=== PATIENT | female | born 2000 | race Caucasian/White ===

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

== ENCOUNTER 2018-06-06 19:28 | Inpatient (IN) | payer BC ==
[2018-06-06] MEDS ORDERED: ACETAMINOPHEN TAB 325 MG TAB PO STA (19:40)
[2018-06-06] MEDS ORDERED: DEXAMETHASONE SOD PHOSPHATE 10 MG/ML 1 ML VIAL IV STA (19:50)
[2018-06-06] MEDS ORDERED: RACEPINEPHRINE 2.25% NEB 0.5 ML NEBU INHALATION STA (19:51)
[2018-06-06] MEDS: SODIUM CHLORIDE 0.9% 500 ML 500 ML IV SCH ×2 (20:07→20:14)
[2018-06-06] MEDS ORDERED: KETOROLAC 30 MG/ML 1 ML VIAL IVP STA (20:08)
[2018-06-06 20:13] LABS: Basophils # (A) 0.1 k/uL (0-0.2); Basophils % (A) 0 %; Eosinophils # (A) 0.2 k/uL (0-0.7); Eosinophils % (A) 1 %; HCT 37.2 % (34.0-46.0); HGB 12.7 gm/dL (11.4-16.0); Lymphocytes # (A) 1.8 k/uL (1.0-4.8); Lymphocytes % (A) 9 %; MCH 27.6 pg (25.0-35.0); MCHC 34.1 g/dL (31.0-37.0); MCV 80.9 fL (80.0-100.0); Mean Platelet Volume 7.1; Monocytes % (A) 5 %; Neutrophils # (A) 16.5 k/uL (1.3-7.7); Neutrophils % (A) 83 %; Platelet Count 326 k/uL (150-450); RBC 4.59 m/uL (3.80-5.40); RDW 14.1 % (11.5-15.5); WBC 19.9 k/uL (4.0-11.0)
[2018-06-06 20:17] LABS: Appearance,Urine Cloudy (Clear); Bilirubin,Urine Negative (Negative); Blood,Urine Negative (Negative); Color,Urine Yellow; Glucose,Urine (UA) Negative (Negative); Ketones,Urine Trace (Negative); Leukocyte Esterase,Urine Small (Negative); Mucus,Urine Occasional /hpf; Nitrite,Urine Negative (Negative); PH, Urine 6.5 (5.0-8.0); Protein,Urine 2+ (Negative); RBC,Urine 2 /hpf (0-5); Specific Gravity,Urine 1.027 (1.001-1.035); Squamous Epithelial Cell,Urine 10 /hpf (0-4); WBC,Urine 6 /hpf (0-5)
[2018-06-06] MEDS ORDERED: AMPICILLIN-SULBACTAM 3 GM in SODIUM CHLORIDE 0.9% 100 ML IVPB STA (20:19)
[2018-06-06 20:28] LABS: Albumin 4.7 g/dL (3.5-5.0); Anion Gap 13 mmol/L; Blood Urea Nitrogen 10 mg/dL (7-17); Calcium 9.2 mg/dL (8.4-10.2); Carbon Dioxide 22 mmol/L (22-30); Chloride 101 mmol/L (98-107); Glucose 86 mg/dL (74-99); Sodium 136 mmol/L (137-145); Total Bilirubin 1.1 mg/dL (0.2-1.3); Total Protein 8.4 g/dL (6.3-8.2)
[2018-06-06 20:29] LABS: ALT 19 U/L (9-52); AST 37 U/L (14-36); Alkaline Phosphatase 60 U/L (38-126); Potassium 4.7 mmol/L (3.5-5.1)
--- NOTE | 2018-06-06 21:11 | CT ---
EXAMINATION TYPE: CT soft tissue neck w con DATE OF EXAM: 06/06/2018 HISTORY: throat swelling x2 days COMPARISON: NONE CT DLP: 493.8 mGycm. Automated Exposure Control for Dose Reduction was Utilized. TECHNIQUE: CT scan of the neck is performed with IV Contrast, patient injected with 100 mL of Isovue 300, axial images are obtained, coronal and sagittal reformatted images are reviewed. FINDINGS: Exam noticed suboptimal secondary to patient's large body habitus. Airway: There are some fullness of the heart palate and adenoid tonsils in the posterior nasopharynx. Region of epiglottis and vallecula appears within normal limits. Piriform sinuses are symmetric misael nal image 30. Hypopharyngeal airway is patent. Thyroid gland is within normal limits. Parotid/submandibular glands: No gross abnormality seen. Carotid/Vascular Structures: No significant plaque or stenosis carotid bulb level bilaterally . Domin ant left vertebral artery incidentally noted. Osseous Structures: Reversal of normal cervical curvature. Other: Prominent bilateral neck lymph nodes are seen including some enlarged bilaterally. For referen ce there is right submandibular lymph node measuring 2.2 x 1.7 cm axial image 55. For reference there is enlarged left submandibular lymph node at level of hyoid bone axial image 51 measuring 2.0 x 1.8 cm. IMPRESSION: Suspect adenoid and more prominent palatine tonsillitis. Mass effect on nasopharyngeal an d oropharyngeal airway noted. Remainder of airway patent. Reactive adenopathy is noted. No drainable abscess is seen.
[2018-06-06] MEDS ORDERED: ACETAMINOPHEN ORAL SUSP 160 MG/5 ML CUP PO ONE (21:17)
[2018-06-06] MEDS ORDERED: NALOXONE 0.4 MG/ML 1 ML VIAL IV PRN (22:19)
[2018-06-06] MEDS ORDERED: ONDANSETRON 4 MG/2 ML VIAL IVP PRN (22:19)
[2018-06-06] MEDS ORDERED: KETOROLAC 30 MG/ML 1 ML VIAL IVP PRN (22:19)
[2018-06-06] MEDS ORDERED: ACETAMINOPHEN ORAL SUSP 160 MG/5 ML CUP PO PRN (22:25)
--- NOTE | 2018-06-06 22:26 | ED ---
General Adult HPI - General Chief complaint: ENT Stated complaint: Dx Tonsillitis,Throat swelling shut Time Seen by Provider: 06/06/18 19:40 Source: patient, RN notes reviewed Mode of arrival: ambulatory Limitations: no limitations - History of Present Illness Initial comments: 17-year-old female presents to the emergency department for a chief complaint of sore throat. Patient states she has had a sore throat for about 3 days. Patient states that this morning he started to worsen. She states her tonsils aren't to swell more than they had over the last several days. Patient saw a provider at urgent care and was given an injection of antibiotics and steroids. Patient states she was prescribed antibiotics for home. However throughout the day patient has had increased swelling of her tonsils and states she now feels as though she cannot swallow any pills. Patient feels as if her throat is closing. At this time denies any difficulty breathing.Patient has no other complaints at this time including shortness of breath, chest pain, abdominal pain, nausea or vomiting, headache, or visual changes. - Related Data Home Medications Medication Instructions Recorded Confirmed Norgestimate-Ethinyl Estradiol 1 tab PO DAILY 06/06/18 06/06/18 [Sprintec 28 Day Tablet] Allergies Allergy/AdvReac Type Severity Reaction Status Date / Time No Known Allergies Allergy Verified 06/06/18 22:11 Review of Systems ROS Statement: Those systems with pertinent positive or pertinent negative responses have been documented in the HPI. ROS Other: All systems not noted in ROS Statement are negative. Past Medical History Past Medical History: No Reported History History of Any Multi-Drug Resistant Organisms: None Reported Past Surgical History: Adenoidectomy Past Psychological History: No Psychological Hx Reported Smoking Status: Never smoker Past Alcohol Use History: None Reported Past Drug Use History: None Reported General Exam Limitations: no limitations General appearance: alert, in no apparent distress Head exam: Present: atraumatic, normocephalic, normal inspection Eye exam: Present: normal appearance, PERRL, EOMI. Absent: scleral icterus, conjunctival injection, periorbital swelling ENT exam: Present: mucous membranes moist, TM's normal bilaterally, normal exte rnal ear exam. Absent: normal exam, normal oropharynx (Significant tonsillitis noted, right worse in the left. Uvula somewhat deviated to the left however difficult to see due to tonsillitis. No evidence of [employer] at this time. Patient has some pain opening her mouth but is able to completely open jaw. No sublingual edema.) Neck exam: Present: normal inspection, full ROM, lymphadenopathy (Bilateral submandibular lymphadenopathy noted). Absent: tenderness, meningismus Respiratory exam: Present: normal lung sounds bilaterally. Absent: respiratory distress, wheezes, rales, rhonchi, stridor Cardiovascular Exam: Present: regular rate, normal rhythm, normal heart sounds. Absent: systolic murmur, diastolic murmur, rubs, gallop, clicks Neurological exam: Present: alert, oriented X3, CN II-XII intact Psychiatric exam: Present: normal affect, normal mood Course Vital Signs 06/06/18 06/06/18 06/06/18 19:36 20:10 20:18 Temperature 99.8 F H Pulse Rate 115 H 112 H 120 H Respiratory 16 Rate Blood Pressure 100/76 O2 Sat by Pulse 97 Oximetry 06/06/18 21:06 Temperature 101.7 F H Pulse Rate 112 H Respiratory 20 Rate Blood Pressure 149/79 O2 Sat by Pulse 96 Oximetry Medical Decision Making - Medical Decision Making 17-year-old female presents to the emergency department for a chief complaint of sore throat 3 days. This did worsen today patient unable to swallow antibiotics. Patient is febrile here in the emergency department with mild tachycardia noted likely secondary to fever. On exam patient does not appear to be in any respiratory distress. Patient is lying back comfortably resting. However does have significant tonsillitis noted worse on the right side. No evident peritonsillar abscess at this time. CBC does show a white count of 19.9. CMP unremarkable. Lactic 1.0. Rapid strep and heterophile are negative. Patient was given IV Rocephin and Unasyn, blood cultures pending. She was also given Decadron. CT soft tissue neck that show adenoid and prominent palatine tonsillitis with mass effect on the nasopharyngeal and oropharyngeal airway noted. The remainder of the airway is patent. No drainable abscess seen. Given mass effect and airway Dr. Farley did speak with Dr. Dorsey who re commends IV Unasyn, IV fluids, and 10 mg of IV Decadron every 6 hours. Patient will be admitted for further management and observation. - Lab Data Result diagrams: 06/06/18 19:51 06/06/18 19:51 Lab Results 06/06/18 06/06/18 06/06/18 Range/Units 19:51 19:51 19:51 WBC 19.9 H (4.0-11.0) k/uL RBC 4.59 (3.80-5.40) m/uL Hgb 12.7 (11.4-16.0) gm/dL Hct 37.2 (34.0-46.0) % MCV 80.9 (80.0-100.0) fL MCH 27.6 (25.0-35.0) pg MCHC 34.1 (31.0-37.0) g/dL RDW 14.1 (11.5-15.5) % Plt Count 326 (150-450) k/uL Neutrophils % 83 % Lymphocytes % 9 % Monocytes % 5 % Eosinophils % 1 % Basophils % 0 % Neutrophils # 16.5 H (1.3-7.7) k/uL Lymphocytes # 1.8 (1.0-4.8) k/uL Monocytes # 1.0 (0-1.0) k/uL Eosinophils # 0.2 (0-0.7) k/uL Basophils # 0.1 (0-0.2) k/uL Sodium 136 L (137-145) mmol/L Potassium 4.7 (3.5-5.1) mmol/L Chloride 101 (98-107) mmol/L Carbon Dioxide 22 (22-30) mmol/L Anion Gap 13 mmol/L BUN 10 (7-17) mg/dL Creatinine 0.81 (0.52-1.04) mg/dL Est GFR (CKD-EPI)AfAm >90 (>60 ml/min/1.73 sqM) Est GFR (CKD-EPI)NonAf >90 (>60 ml/min/1.73 sqM) Glucose 86 (74-99) mg/dL Plasma Lactic Acid Ludin 1.0 (0.7-2.0) mmol/L Calcium 9.2 (8.4-10.2) mg/dL Total Bilirubin 1.1 (0.2-1.3) mg/dL AST 37 H (14-36) U/L ALT 19 (9-52) U/L Alkaline Phosphatase 60 (38-126) U/L Total Protein 8.4 H (6.3-8.2) g/dL Albumin 4.7 (3.5-5.0) g/dL Urine Color Urine Appearance (Clear) Urine pH (5.0-8.0) Ur Specific [place] (1.001-1.035) Urine Protein (Negative) Urine Glucose (UA) (Negative) Urine Ketones (Negative) Urine Blood (Negative) Urine Nitrite (Negative) Urine Bilirubin (Negative) Urine Urobilinogen (<2.0) mg/dL Ur Leukocyte Esterase (Negative) Urine RBC (0-5) /hpf Urine WBC (0-5) /hpf Ur Squamous Epith Cells (0-4) /hpf Urine Mucus (None) /hpf Urine HCG, Qual (Not Detectd) Heterophile Antibody (Negative) Group A Strep Rapid (Negative) 06/06/18 06/06/18 06/06/18 Range/Units 19:51 19:51 19:51 WBC (4.0-11.0) k/uL RBC (3.80-5.40) m/uL Hgb (11.4-16.0) gm/dL Hct (34.0-46.0) % MCV (80.0-100.0) fL MCH (25.0-35.0) pg MCHC (31.0-37.0) g/dL RDW (11.5-15.5) % Plt Count (150-450) k/uL Neutrophils % % Lymphocytes % % Monocytes % % Eosinophils % % Basophils % % Neutrophils # (1.3-7.7) k/uL Lymphocytes # (1.0-4.8) k/uL Monocytes # (0-1.0) k/uL Eosinophils # (0-0.7) k/uL Basophils # (0-0.2) k/uL Sodium (137-145) mmol/L Potassium (3.5-5.1) mmol/L Chloride (98-107) mmol/L Carbon Dioxide (22-30) mmol/L Anion Gap mmol/L BUN (7-17) mg/dL Creatinine (0.52-1.04) mg/dL Est GFR (CKD-EPI)AfAm (>60 ml/min/1.73 sqM) Est GFR (CKD-EPI)NonAf (>60 ml/min/1.73 sqM) Glucose (74-99) mg/dL Plasma Lactic Acid Lud[place] (0.7-2.0) mmol/L Calcium (8.4-10.2) mg/dL Total Bilirubin (0.2-1.3) mg/dL AST (14-36) U/L ALT (9-52) U/L Alkaline Phosphatase (38-126) U/L Total Protein (6.3-8.2) g/dL Albumin (3.5-5.0) g/dL Urine Color Yellow Urine Appearance Cloudy H (Clear) Urine pH 6.5 (5.0-8.0) Ur Specific [place] 1.027 (1.001-1.035) Urine Protein 2+ H (Negative) Urine Glucose (UA) Negative (Negative) Urine Ketones Trace H (Negative) Urine Blood Negative (Negative) Urine Nitrite Negative (Negative) Urine Bilirubin Negative (Negative) Urine Urobilinogen 3.0 (<2.0) mg/dL Ur Leukocyte Esterase Small H (Negative) Urine RBC 2 (0-5) /hpf Urine WBC 6 H (0-5) /hpf Ur Squamous Epith Cells 10 H (0-4) /hpf Urine Mucus Occasional H (None) /hpf Urine HCG, Qual (Not Detectd) Heterophile Antibody Negative (Negative) Group A Strep Rapid Negative (Negative) 06/06/18 Range/Units 19:51 WBC (4.0-11.0) k/uL RBC (3.80-5.40) m/uL Hgb (11.4-16.0) gm/dL Hct (34.0-46.0) % MCV (80.0-100.0) fL MCH (25.0-35.0) pg MCHC (31.0-37.0) g/dL RDW (11.5-15.5) % Plt Count (150-450) k/uL Neutrophils % % Lymphocytes % % Monocytes % % Eosinophils % % Basophils % % Neutrophils # (1.3-7.7) k/uL Lymphocytes # (1.0-4.8) k/uL Monocytes # (0-1.0) k/uL Eosinophils # (0-0.7) k/uL Basophils # (0-0.2) k/uL Sodium (137-145) mmol/L Potassium (3.5-5.1) mmol/L Chloride (98-107) mmol/L Carbon Dioxide (22-30) mmol/L Anion Gap mmol/L BUN (7-17) mg/dL Creatinine (0.52-1.04) mg/dL Est GFR (CKD-EPI)AfAm (>60 ml/min/1.73 sqM) Est GFR (CKD-EPI)NonAf (>60 ml/min/1.73 sqM) Glucose (74-99) mg/dL Plasma Lactic Acid Lud[place] (0.7-2.0) mmol/L Calcium (8.4-10.2) mg/dL Total Bilirubin (0.2-1.3) mg/dL AST (14-36) U/L ALT (9-52) U/L Alkaline Phosphatase (38-126) U/L Total Protein (6.3-8.2) g/dL Albumin (3.5-5.0) g/dL Urine Color Urine Appearance (Clear) Urine pH (5.0-8.0) Ur Specific [place] (1.001-1.035) Urine Protein (Negative) Urine Glucose (UA) (Negative) Urine Ketones (Negative) Urine Blood (Negative) Urine Nitrite (Negative) Urine Bilirubin (Negative) Urine Urobilinogen (<2.0) mg/dL Ur Leukocyte Esterase (Negative) Urine RBC (0-5) /hpf Urine WBC (0-5) /hpf Ur Squamous Epith Cells (0-4) /hpf Urine Mucus (None) /hpf Urine HCG, Qual Not Detected (Not Detectd) Heterophile Antibody (Negative) Group A Strep Rapid (Negative) Disposition Clinical Impression: Tonsillitis Disposition: ADMITTED IP TO THIS [facility] Condition: Fair Is patient prescribed a controlled substance at d/c from ED?: No Referrals: Nik Shields MD [Primary Care Provider] - 1-2 days Time of Disposition: 22:26
[2018-06-06] MEDS ORDERED: AMPICILLIN-SULBACTAM 3 GM in SODIUM CHLORIDE 0.9% 100 ML IVPB SCH (22:30)
[2018-06-06] MEDS: DEXAMETHASONE SOD PHOSPHATE 10 MG/ML 1 ML VIAL IV SCH (22:51)
[2018-06-06] MEDS ORDERED: AMPICILLIN-SULBACTAM 3 GM in SODIUM CHLORIDE 0.9% 100 ML IVPB ONE (23:00)
[2018-06-06] MEDS: SODIUM CHLORIDE 0.9% 1,000 ML IV SCH (23:26)
[2018-06-06 23:54] VITALS: BMI 47.9
[2018-06-07] MEDS: AMPICILLIN-SULBACTAM 3 GM in SODIUM CHLORIDE 0.9% 100 ML IVPB SCH ×4 (03:24→21:23)
[2018-06-07] MEDS: DEXAMETHASONE SOD PHOSPHATE 10 MG/ML 1 ML VIAL IV SCH ×4 (04:44→21:25)
[2018-06-07] MEDS: SODIUM CHLORIDE 0.9% 1,000 ML IV SCH ×3 (04:44→21:24)
--- NOTE | 2018-06-07 10:35 | P.HPIM ---
History of Present Illness H&P Date: 06/07/18 This is a 17-year-old female patient of Dr. Shields. Patient presented with complaints of increased tonsillitis and pain. Patient reports that presently 3 days ago she started to have a sore throat. Patient presented to her PCP gave her a shot of steroids and antibiotics. Patient states that at home she started to become worse and unable to swallow her antibiotics. Patient was febrile. Patient reports she had episodes of tonsillitis and strep throat in the past. Patient denies any other significant health history. CT of the soft tissue neck with contrast completed showing suspected adenoid more prominent palatine tonsillitis. Mass effect and nasopharyngeal and oropharyngeal airway noted. Remainder airway pain. Reactive adenopathy is noted. No drainable abscess is seen. Patient started on Unasyn for IV antibiotics and Decadron for IV steroids. Dr. Dorsey consulted for ENT. This time patient does report improvement with sore throat. Tonsils remain prominent swollen. Patient denies any chest pain or shortness of breath patient denies nausea vomiting or diarrhea. Patient denies any urinary burning or frequency. Review of Systems Please refer to HPI otherwise unremarkable Past Medical History Past Medical History: No Reported History History of Any Multi-Drug Resistant Organisms: None Reported Past Surgical History: Adenoidectomy Past Anesthesia/Blood Transfusion Reactions: No Reported Reaction Past Psychological History: No Psychological Hx Reported Smoking Status: Never smoker Past Alcohol Use History: None Reported Past Drug Use History: None Reported - Past Family History Mother Family Medical History: No Reported History Father Family Medical History: No Reported History Medications and Allergies Home Medications Medication Instructions Recorded Confirmed Type Norgestimate-Ethinyl Estradiol 1 tab PO DAILY 06/06/18 06/06/18 History [Sprintec 28 Day Tablet] Allergies Allergy/AdvReac Type Severity Reaction Status Date / Time No Known Allergies Allergy Verified 06/06/18 22:11 Physical Exam Vitals: Vital Signs Temp Pulse Pulse Resp BP BP Pulse Ox 06/07/18 07:00 97.7 F 89 15 126/77 98 06/06/18 23:59 98.8 F 101 H 20 125/77 96 06/06/18 23:27 98.7 F 96 18 144/79 95 06/06/18 22:39 98.7 F 101 H 20 148/65 95 06/06/18 21:06 101.7 F H 112 H 20 149/79 96 06/06/18 20:18 120 H 06/06/18 20:10 112 H 06/06/18 19:36 99.8 F H 115 H 16 100/76 97 Intake and Output 06/06/18 06/07/18 06/07/18 22:59 06:59 14:59 Intake Total 100 Balance 100 Intake: Intake, IV Titration 100 Amount Ampicillin-Sulbactam 3 gm 100 In Sodium Chloride 0.9% 100 ml @ 200 mls/hr IVPB Q6H RAIZA Rx#:[id number] Other: # Voids 1 Weight 138.7 kg Head normocephalic Neck supple, grade 3 tonsils, bilateral swollen lymph nodes tonight Lungs clear to auscultation bilaterally no wheezing or crackles Heart regular rate and rhythm S1-S2, no rub or gallop Abdomen is soft nontender nondistended positive bowel sounds no hepatosplenomegaly Extremities no edema Neuro alert and orientated to 3 Results CBC & Chem 7: 06/06/18 19:51 06/06/18 19:51 Labs: Abnormal Lab Results - Last 24 Hours (Table) 06/06/18 06/06/18 06/06/18 Range/Units 19:51 19:51 19:51 WBC 19.9 H (4.0-11.0) k/uL Neutrophils # 16.5 H (1.3-7.7) k/uL Sodium 136 L (137-145) mmol/L AST 37 H (14-36) U/L Total Protein 8.4 H (6.3-8.2) g/dL Urine Appearance Cloudy H (Clear) Urine Protein 2+ H (Negative) Urine Ketones Trace H (Negative) Ur Leukocyte Esterase Small H (Negative) Urine WBC 6 H (0-5) /hpf Ur Squamous Epith Cells 10 H (0-4) /hpf Urine Mucus Occasional H (None) /hpf Microbiology - Last 24 Hours (Table) 06/06/18 19:51 Group A Strep Throat Culture - Preliminary Throat Thrombosis Risk Factor Assmnt - Choose All That Apply Any of the Below Risk Factors Present?: No Assessment and Plan Assessment: 1. Tonsillitis with mass effect. CT soft tissue neck with contrast showing suspect adenoid in more prominent palatine tonsillitis. Mass effect on the nasopharyngeal and or [place] airway noted. Remainder of area pain. Reactive adenopathy is noted. No drainable abscess is seen. Negative for strep ENT has been consulted. Patient started on Decadron for IV steroids and Unasyn for IV antibiotics 2. Urinary tract infection. Patient denies any urinary symptoms. Urine culture has been ordered. Patient is currently on Unasyn for antibiotic 3. Leukocytosis with fever present on admission. Tylenol has been ordered for fever for control. White blood cell elevated at 19.9. Patient is on Unasyn. Blood cultures ordered. DVT prophylaxis SCDs until evaluated by surgical services. GI prophylaxis Protonix Time with Patient: Greater than 30 (Greater than 60% of the total time spent in counseling and coordination of care. I performed an examination of the patient and discussed their management with the Nurse Practitioner. I have reviewed the Nurse Practitioner's notes and agree with the documented findings and plan of care)
[2018-06-07 12:00] LABS: ALT 25 U/L (9-52); AST 14 U/L (14-36); Albumin 4.2 g/dL (3.5-5.0); Alkaline Phosphatase 65 U/L (38-126); Anion Gap 10 mmol/L; Blood Urea Nitrogen 13 mg/dL (7-17); Calcium 9.1 mg/dL (8.4-10.2); Carbon Dioxide 24 mmol/L (22-30); Chloride 107 mmol/L (98-107); Glucose 129 mg/dL (74-99); Potassium 4.6 mmol/L (3.5-5.1); Sodium 141 mmol/L (137-145); Total Bilirubin 0.5 mg/dL (0.2-1.3); Total Protein 7.1 g/dL (6.3-8.2)
[2018-06-07 12:02] LABS: Basophils % (A) 0 %; Eosinophils % (A) 0 %; HCT 35.6 % (34.0-46.0); HGB 12.2 gm/dL (11.4-16.0); Lymphocytes # (A) 1.2 k/uL (1.0-4.8); Lymphocytes % (A) 6 %; MCH 28.3 pg (25.0-35.0); MCHC 34.2 g/dL (31.0-37.0); MCV 82.7 fL (80.0-100.0); Mean Platelet Volume 6.5; Monocytes # (A) 0.3 k/uL (0-1.0); Monocytes % (A) 2 %; Neutrophils # (A) 16.9 k/uL (1.3-7.7); Neutrophils % (A) 91 %; Platelet Count 299 k/uL (150-450); RDW 14.2 % (11.5-15.5); WBC 18.5 k/uL (4.0-11.0)
--- NOTE | 2018-06-07 23:01 | CONS ---
CONSULTATION DATE OF CONSULTATION: 06/07/2018 REASON FOR CONSULTATION: Acute tonsillitis. HISTORY OF PRESENT ILLNESS: The patient is a pleasant 17-year-old female who was admitted to [facility] via the emergency center on 06/06/2018. The patient states that approximately 3 or 4 days prior to coming to the emergency room she developed a severe sore throat. After a couple of days she saw her family physician, who gave her an intramuscular injection of antibiotics and also placed her on oral steroids. She states that because she was not any better within 48 hours she presented herself at the emergency room, where the emergency room physician examined her and consulted with me. A CT scan was ordered and this did not show any evidence of any abscess. The emergency room physician felt that because of the patient's severe enlargement of the tonsils bilaterally she should be admitted for further intravenous therapy. I recommended the patient be admitted and placed on high doses of Unasyn and also dexamethasone. The patient states that she has a history of having recurrent tonsillitis in the past. 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 PAST MEDICAL HISTORY: Past medical history reveals that she has NO KNOWN ALLERGIESTO MEDICATIONS. She is normally not on any prescription medications. At the time of her admission she was on Ceftin and a Medrol Dosepak. She has not had any previous surgeries. There is no history of asthma, diabetes mellitus or hypertension. REVIEW OF SYSTEMS: Noncontributory. PHYSICAL EXAMINATION: This patient is a very pleasant 17-year-old female who is alert and cooperative. HEENT EXAMINATION: The ears are unremarkable. Pupils are equal, round and reactive to light and accommodation. Extraocular movements are within normal limits. Intranasal examination reveals moderate septal deviation with compensatory hypertrophy of inferior turbinates and mild amount of mucus on the mucous membranes draining down the posterior pharynx. Examination of oropharynx reveals 4+ bilateral tonsillar hypertrophy with exudate bilaterally. The patient's airway appears to be acceptable and uncompromised. Palpation of the neck is negative for any neck mass or lymphadenopathy. Cranial nerves 2 through 12 and the remainder of the head and neck exam are unremarkable. CHEST AND CARDIOVASCULAR: Both lung villatoro are clear to percussion and auscultation, basically in regular sinus rhythm. S1 and S2 are present. No murmurs, S3s or S4s. The remainder of physical exam is unremarkable. IMPRESSION: Severe exudative tonsillitis. PLAN: We will continue the patient with the current course of Unasyn and complete her course of dexamethasone. If she continues to improve, I will make an assessment tomorrow after my office hours in the morning, and most likely the patient will be able to be discharged home. I will leave a prescription for antibiotic, Augmentin 875 b.i.d. #20, which I advised the patient to begin taking the day after her discharge from the hospital. I will most likely see the patient tomorrow after my office hours end, approximately between 12 and 1, and at that time it should be okay for her to be discharged home. I advised the patient and her parent to follow up with my office in approximately 2 weeks. I will leave a prescription for Augmentin 875 b.i.d. #20 tablets to be given to the patient to be started the day after her discharge from the hospital and continue using this until it is completely gone. I cautioned her that it is best to take the Augmentin with food, at least a sandwich or cereal, etc., and not with just milk or yogurt. This is done so as to prevent diarrhea. In addition to this, I have advised the patient that she is a candidate for a tonsillectomy once this current infection has run its course. At the time that I see her in my office in 2 weeks, I will discuss with her the procedure of a tonsillectomy and potential complications as well as benefits of that procedure. All questions by both the patient and the patient's mother were answered. I want to take this opportunity to thank you for allowing me to assist in the care of your patient. If I can be of any further assistance, please feel free to call my office. I have discussed the risks, benefits and alternative therapies for the above-mentioned procedure and for both sedation/analgesia as well as necessary blood product administration, if indicated, as they pertain to this patient. The patient has indicated his or her understanding and acceptance of the risks and procedures discussed. MMODL / HEIDYN: [id number] /
[2018-06-08] MEDS: DEXAMETHASONE SOD PHOSPHATE 10 MG/ML 1 ML VIAL IV SCH ×2 (03:47→10:14)
[2018-06-08] MEDS: SODIUM CHLORIDE 0.9% 1,000 ML IV SCH ×2 (03:47→07:37)
[2018-06-08] MEDS: AMPICILLIN-SULBACTAM 3 GM in SODIUM CHLORIDE 0.9% 100 ML IVPB SCH ×2 (03:47→07:35)
--- NOTE | 2018-06-08 06:33 | PN ---
PROGRESS NOTE EVENT NOTE: DATE OF SERVICE: 06/07/2018 This patient was seen by Dr. Cassie Lawson this morning by his nurse practitioner. He took the patient to his service. Later on, he called me that patient was with Dr. Shields. I will resume the care of the patient under my service starting tomorrow morning in which [facility] will be covering me for the same. The patient was not seen by me today because patient was followed by Dr. Lawson today. MMODL / IJN: [id number] /
[2018-06-08] MEDS ORDERED: PANTOPRAZOLE 40 MG TABLET PO SCH (07:30)
[2018-06-08 08:42] VITALS: BP 132/86; PULSE 95; TEMP 97.7
[2018-06-08 08:58] VITALS: RESP 16
[2018-06-08 08:59] LABS: Basophils % (A) 0 %; Eosinophils % (A) 0 %; HCT 36.2 % (34.0-46.0); HGB 11.5 gm/dL (11.4-16.0); Lymphocytes # (A) 1.5 k/uL (1.0-4.8); Lymphocytes % (A) 9 %; MCH 26.8 pg (25.0-35.0); MCHC 31.8 g/dL (31.0-37.0); MCV 84.2 fL (80.0-100.0); Mean Platelet Volume 7.4; Monocytes # (A) 0.3 k/uL (0-1.0); Monocytes % (A) 2 %; Neutrophils # (A) 15.7 k/uL (1.3-7.7); Neutrophils % (A) 89 %; Platelet Count 336 k/uL (150-450); RDW 14.5 % (11.5-15.5); WBC 17.6 k/uL (4.0-11.0)
[2018-06-08 09:24] LABS: ALT 26 U/L (9-52); AST 15 U/L (14-36); Albumin 3.8 g/dL (3.5-5.0); Alkaline Phosphatase 62 U/L (38-126); Anion Gap 11 mmol/L; Blood Urea Nitrogen 16 mg/dL (7-17); Calcium 9.2 mg/dL (8.4-10.2); Carbon Dioxide 22 mmol/L (22-30); Chloride 109 mmol/L (98-107); Glucose 155 mg/dL (74-99); Potassium 4.8 mmol/L (3.5-5.1); Sodium 142 mmol/L (137-145); Total Bilirubin 0.3 mg/dL (0.2-1.3); Total Protein 6.5 g/dL (6.3-8.2)
--- NOTE | 2018-06-08 22:22 | DS ---
DISCHARGE SUMMARY FINAL DIAGNOSES: 1. Acute severe exudative tonsillitis with mass effect. 2. Urinary tract infection. 3. Leukocytosis. DISCHARGE DISPOSITION: The patient will be discharged in stable condition with guarded prognosis. Discharge cleared by Dr. Dorsey. HISTORY OF PRESENT ILLNESS: This 17-year-old woman with a past medical history of multiple medical problems was admitted with significant features of tonsillitis. Patient was treated with IV antibiotics. Patient was seen by Dr. Dorsey and patient was treated with antibiotics and steroids. Patient improved significantly. Dr. Dorsey recommended outpatient followup with possible surgery later. On exam, vital signs are stable. CARDIOVASCULAR SYSTEM: S1, S2 muffled. ABDOMEN: Soft. NERVOUS SYSTEM: No focal deficit. Pulse rate is much improved. DISCHARGE ADVICE AND MEDICATIONS: 1. Diet is cardiac. 2. Activity limited until followup. 3. Follow up Dr. Shields in 1-2 days. 4. Follow up with Dr. Dorsey as advised. 5. Augmentin 1 p.o. b.i.d. for 10 days. 6. Sprintec 28 mg p.o. daily. 7. Tylenol p.r.n. Once again, the patient will be discharged in stable condition with guarded prognosis. MMODL / IJN: [id number] /
== END 2018-06-08 13:40 | disposition home or self-care (01) | DRG 153 ==
LOC: EC 19:28 → 4SSUR 22:04 → OBSVTOIN 22:05
PROVIDERS: ADMIT Internal Medicine; ATTEND Hospitalist
DX: J03.90 Acute tonsillitis, unspecified (principal); N39.0 Urinary tract infection, site not specified; Z98.890 Other specified postprocedural states; Z86.19 Personal history of other infectious and parasitic diseases
CPT/HCPCS: 36415; 70491; 80053; 81001; 81025; 83605; 85025; 86308; 87040; 87081; 87086; 87430; 94640; 96361; 96365; 96375; 99285

== ENCOUNTER → 2018-07-19 | Outpatient (CLI) | payer BC ==
[2018-07-19 13:01] LABS: HCT 38.1 % (34.0-46.0); HGB 12.5 gm/dL (11.4-16.0); MCH 27.4 pg (25.0-35.0); MCHC 32.7 g/dL (31.0-37.0); MCV 83.8 fL (80.0-100.0); Mean Platelet Volume 6.8; Platelet Count 347 k/uL (150-450); RBC 4.55 m/uL (3.80-5.40); RDW 13.6 % (11.5-15.5); WBC 8.4 k/uL (4.0-11.0)
== END | disposition home or self-care (01) ==
LOC: LABPAT 12:35
PROVIDERS: ATTEND Otolaryngology
DX: Z01.812 Encounter for preprocedural laboratory examination (principal)
CPT/HCPCS: 36415; 85027

== ENCOUNTER 2018-07-22 09:52 | Day surgery (SDC) | payer BC ==
[2018-07-19 09:41] VITALS: BMI 42.8
--- NOTE | 2018-07-22 04:37 | HP ---
HISTORY AND PHYSICAL CHIEF COMPLAINT: Recurrent tonsillitis. HISTORY OF PRESENT ILLNESS: This patient is a pleasant 17-year-old female who was recently seen in my office with a history of having recurrent severe exudative tonsillitis. The patient has been on multiple courses of oral antibiotics. At the time that she was seen in my office, clinical examination revealed 4+ cryptic tonsils filled with white cheesy debris. It was recommended that the patient undergo a tonsillectomy under general anesthesia. PAST MEDICAL HISTORY: Reveals that the patient has no known allergies. MEDICATIONS: Her current medications include control pills. PREVIOUS SURGERIES: Previous surgeries include a bilateral myringotomy with insertion of ventilation tubes and also an adenoidectomy. There is no history of asthma, diabetes mellitus or hypertension. REVIEW OF SYSTEMS: The review of systems is completely noncontributory. PHYSICAL EXAMINATION: This patient is a pleasant 17-year-old female who was alert and cooperative. HEENT EXAMINATION: The patient is normocephalic. Tympanic membranes are normal. Middle ear spaces are free of any fluid or infection. Pupils are equal, round, react to light and accommodation. Extraocular movements are within normal limits. Intranasal examination reveals moderate septal deviation with compensatory hypertrophy of the inferior turbinates and a moderate amount of mucus on the mucous membranes and draining down the posterior pharynx. Examination of the oropharynx reveals 4+ cryptic tonsils filled with white cheesy debris. Cranial nerves 2 through 12 and the remainder of the head and neck exam are all within normal limits. CHEST/CARDIOVASCULAR: Both lung villatoro are clear to percussion and auscultation. The patient is in regular sinus rhythm. S1 and S2 are present without evidence of any murmurs. Peripheral pulses are bilaterally symmetrical and within normal limits. ABDOMEN: There is no evidence of any masses, megaly or tenderness. The abdomen is soft. SKIN: Unremarkable. MUSCULOSKELETAL/NEUROLOGICAL: Within normal limits. PELVIC/RECTAL: Exam is deferred at this time because the patient has this done on a regular basis at her family physician's office. The remainder of the physical exam is unremarkable. IMPRESSION: Chronic tonsillitis. PLAN: The patient is scheduled to undergo a tonsillectomy under general anesthesia in the a.m. ATTENTION: RNs in the presurgical area: I have ordered for this patient to receive 1000 mg of Ofirmev and also 2 g of Ancef, both to be given intravenously once intravenous line has been established. If the pharmacy department sends any other presurgical prophylactic antibiotic to the presurgical area for this patient other than Ancef, that order should be cancelled and the medication should be returned to the to the pharmacy department and make sure that the patient's account is credited appropriately. Again the only pre- surgical prophylactic antibiotic that I have personally ordered is Ancef 2 grams IV. I have discussed the risks, benefits and alternative therapies for the above-mentioned procedure and for both sedation/analgesia as well as necessary blood product administration, if indicated, as they pertain to this patient. The patient has indicated his or her understanding and acceptance of the risks and procedures discussed. MMODL / IJN: [id number] /
[~2018-07-22 09:52] MED LIST: DEXAMETHASONE SOD PHOSPHATE 10 MG/ML 1 ML VIAL IV ONE; LACTATED RINGERS 1,000 ML IV SCH; LIDOCAINE 1% 20 ML VIAL (10MG/ML) FOR IV START INTRADERMA PRN; MIDAZOLAM 2 MG/2 ML VIAL IV PRN; NALOXONE 0.4 MG/ML 1 ML VIAL IV PRN; ONDANSETRON 4 MG/2 ML VIAL IVP ONE; Pre Op ABX Message 1 EACH MISC MISCELLANE ONE; fentaNYL (PF) 50 MCG/ML 2 ML AMP IV PRN
[2018-07-22] MEDS ORDERED: ACETAMINOPHEN IV (For NPO) 1,000 MG in EMPTY BAG 1 BAG IVPB ONE ×2 (11:15→17:30)
[2018-07-22] MEDS: ceFAZolin IN SWFI 2 GM/20 ML SYRINGE IVP ONE ×2 (11:30→11:50)
[2018-07-22] MEDS ORDERED: BUPIVACAINE (PF) 0.5% 30 ML VIAL MISCELLANE ONE ×3 (11:55→12:09)
[2018-07-22] MEDS ORDERED: LACTATED RINGERS 1,000 ML IV SCH (12:30)
[2018-07-22] MEDS ORDERED: ONDANSETRON 4 MG/2 ML VIAL IVP PRN (12:30)
[2018-07-22 12:43] VITALS: TEMP 97.2
[2018-07-22] MEDS: HYDROMORPHONE (PF) 10 MG in SODIUM CHLORIDE 0.9% 49 ML, PCA BAG 1 BAG IV PRN ×2 (12:53→13:34)
[2018-07-22 13:31] VITALS: RESP 18
--- NOTE | 2018-07-22 14:32 | OP ---
OPERATIVE REPORT DATE OF SURGERY: 07/22/2018 PREOPERATIVE DIAGNOSIS: Chronic tonsillitis with tonsillar hypertrophy. POSTOPERATIVE DIAGNOSIS: Chronic tonsillitis with tonsillar hypertrophy. ANESTHESIA: General. OPERATIVE PROCEDURE: Tonsillectomy. SURGEON: Dr. Chintan Dorsey. COMPLICATIONS: None. ESTIMATED BLOOD LOSS: Less than 25 mL. OPERATIVE PROCEDURE: The patient was placed on the Operating Table in the supine position, after uneventful induction and endotracheal intubation, satisfactory general anesthesia was obtained. Next, the #3 Aletha-Mariano mouth gag was introduced into the oropharynx, expanded and suspended from a Fowler Stand. Following this, both peritonsillar areas were injected with the tonsillar forceps and pulled medially. The sickle knife was used to make an incision 4 mm lateral to the anterior pillar, beginning at the superior pole and working down to the inferior pole with a similar incision being carried out parallel to the posterior pillar. The angle scissors and the serrated Louise dissector were used to dissect the tonsil away from the tonsillar fossa. The tonsil itself was excised en toto using the tonsillar snare. Hemostasis was obtained using suction cautery. A sponge was placed in the empty tonsillar fossa. Attention was then directed to the left tonsil where the same procedure was carried out, with the left tonsil being grasped with the tonsillar forceps and pulled medially. The sickle knife was used to make an incision 4 mm lateral to the anterior pillar beginning at the superior pole and working down to the inferior pole with a similar incision being carried out parallel to the posterior pillar. Once again, the angle scissors and the serrated Louise dissector were used to dissect the tonsil away from the tonsillar fossa and the tonsil itself was excised en toto using the tonsillar snare. Hemostasis was obtained using suction cautery. A sponge was placed in the empty tonsillar fossa. The mouth gag was relaxed for a period of approximately seven minutes and upon re-expanding and removing all sponges, no evidence of any active bleeding was noted. At this point, the procedure was terminated. There were no intraoperative complications. The patient tolerated the procedure well and was returned to the Recovery Room in satisfactory condition. MMODL / IJN: [id number] /
[2018-07-22 14:38] VITALS: BP 147/81; PULSE 78
== END 2018-07-22 16:32 | disposition home or self-care (01) ==
LOC: OR 09:52
PROVIDERS: ATTEND Otolaryngology
DX: J35.01 Chronic tonsillitis (principal); Z79.3 Long term (current) use of hormonal contraceptives; J45.909 Unspecified asthma, uncomplicated; E11.9 Type 2 diabetes mellitus without complications; I10 Essential (primary) hypertension; F41.9 Anxiety disorder, unspecified; F32.9 Major depressive disorder, single episode, unspecified; Z79.891 Long term (current) use of opiate analgesic
CPT/HCPCS: 81025; 88304; 42826; J2405; J0131; J1170; J0690

== ENCOUNTER → 2022-08-14 | Outpatient (CLI) | payer BC ==
--- NOTE | 2022-08-14 08:52 | US ---
EXAMINATION TYPE: US pelvic complete DATE OF EXAM: 08/14/2022 COMPARISON: 10/27/2017 CLINICAL INDICATION: Female, 21 years old with history of N93.9; heavy bleeding x 1.5months TECHNIQUE: Transabdominal (TA). Transabdominal sonographic images of the pelvis were acquired. Date of LMP: 07/07/2022 EXAM MEASUREMENTS: Uterus: 8.1x3.8x5.9 cm Endometrial Stripe: 0.48 cm Right Ovary: 2.7x1.4x2.3 cm Left Ovary: 2.0x1.7x3.6 cm 1. Uterus: Anteverted wnl 2. Endometrium: wnl 3. Right Ovary: wnl 4. Left Ovary: wnl Spectral, color and waveform doppler imaging shows good arterial and venous flow within the ovaries ; there is no evidence for ovarian torsion. 5. Bilateral Adnexa: Obscured by overlying bowel gas 6. Posterior cul-de-sac: wnl exam technically difficult due to large body habitus and poorly distended bladder IMPRESSION: 1. Limited exam secondary to body habitus, No evidence for acute process. 2. Endometrium within normal limits for thickness. 3.
== END | disposition home or self-care (01) ==
LOC: RADUSWWP 07:48
PROVIDERS: ATTEND Family Medicine
DX: N93.9 Abnormal uterine and vaginal bleeding, unspecified (principal)
CPT/HCPCS: 76856